=== PATIENT | female | born 1950 | race Caucasian/White ===

== ENCOUNTER → 2017-03-20 | Outpatient (CLI) | payer MEDICARE ==
[~2017-03-20] MED LIST: ASPI-496 PO; DEXA4TAB PO; GARL5000 PO; MAGN400O4 PO; MULT-82 PO; OMEG-69 PO; OMNIPAQUE 350 MG/ML, 100ML BOTTLE ONE; ONDA-39 PO; PLAN450T PO; WARF4TAB PO
== END | disposition home or self-care (01) ==
LOC: CFH 10:02
PROVIDERS: ATTEND Specialist
DX: Z12.31 Encounter for screening mammogram for malignant neoplasm of breast (principal); C54.1 Malignant neoplasm of endometrium; C78.7 Secondary malignant neoplasm of liver and intrahepatic bile duct; N13.30 Unspecified hydronephrosis; R59.0 Localized enlarged lymph nodes; R91.8 Other nonspecific abnormal finding of lung field; R18.8 Other ascites
CPT/HCPCS: 74177; 82565; G0202; Q9967

== ENCOUNTER 2017-03-25 12:30 | Observation (INO) | payer MEDICARE ==
[~2017-03-25] VITALS: Ht 157.5 cm; Wt 62.2 kg
[2017-03-25] VITALS (7 sets, daily range): BP systolic 125–132; BP diastolic 70–80
[~2017-03-25 12:30] MED LIST changes: -OMNIPAQUE 350 MG/ML, 100ML BOTTLE ONE
[2017-03-25] MEDS ORDERED: SODIUM CHLORIDE FLUSH 10ML SYR IVF ONE (14:30)
[2017-03-25 14:38] LABS: ASPARTATE AMINO TRANSFERASE 15 U/L (15-37); BLOOD UREA NITROGEN 7 mg/dL (7-18)
[2017-03-25 14:56] LABS: PATH.CAST-FLAG NOT PRESENT; SPERM-FLAG NOT PRESENT; SRC-FLAG NOT PRESENT; XTAL-FLAG NOT PRESENT; YLC-FLAG NOT PRESENT
[2017-03-25] MEDS ORDERED: OXYcodone/APAP 7.5/325MG TABLET PO ONE (17:00)
[2017-03-25] MEDS ORDERED: LIDOCAINE/PRILOCAINE CRM W/TEG 5GM TP ONE (18:00)
[2017-03-25] MEDS ORDERED: NALOXONE 1 MG/ML, 2ML ONE (18:16)
[2017-03-25] MEDS ORDERED: FENTANYL PF 100 MCG/2ML ONE (18:16)
[2017-03-25] MEDS ORDERED: FLUMAZENIL 0.1 MG/1 ML, 5ML ONE (18:17)
[2017-03-25] MEDS ORDERED: LIDOCAINE 1%, 20ML ONE (18:30)
[2017-03-25] MEDS: ONDANSETRON ODT 4 MG PO SCH (21:00)
[2017-03-26 00:15] VITALS: BP 127/80
[2017-03-26 01:04] VITALS: BP 138/69
[2017-03-26] MEDS: ONDANSETRON ODT 4 MG PO SCH (03:00)
[2017-03-26 06:53] VITALS: BP 145/76
== END 2017-03-26 11:30 | disposition home or self-care (01) ==
LOC: ED 14:34 → EDIP 17:19 → 3NW 18:17
PROVIDERS: ADMIT Specialist; ATTEND Specialist
DX: C54.1 Malignant neoplasm of endometrium (principal); N13.30 Unspecified hydronephrosis; I10 Essential (primary) hypertension; Z79.01 Long term (current) use of anticoagulants; Z85.42 Personal history of malignant neoplasm of other parts of uterus; Z86.711 Personal history of pulmonary embolism; Z86.718 Personal history of other venous thrombosis and embolism; Z87.891 Personal history of nicotine dependence
CPT/HCPCS: 36415; 50693; 50694; 80053; 81001; 83690; 85025; 85610; 85730; 86304; 99285; C1751; C1769; C1894; C2625; G0378; J3010; J3490; J2310

== ENCOUNTER 2017-04-10 07:24 | Day surgery (SDC) | payer MEDICARE ==
[~2017-04-10] VITALS: Ht 157.5 cm; Wt 58.0 kg
[~2017-04-10 07:24] MED LIST changes: +BUPIVACAINE/PF 0.25% ONE; +BUPIVACAINE/PF-EPI 0.5% 1:200K ONE; +EPINEPHRINE 1 MG/ML, 1ML ONE
[2017-04-10] MEDS ORDERED: LACTATED RINGERS 1,000 ML IV SCH (08:18)
[2017-04-10] MEDS ORDERED: FISH OIL PO (08:21)
[2017-04-10] MEDS ORDERED: MULT-208 PO (08:21)
[2017-04-10] MEDS ORDERED: ONDA4TAB7 PO (08:21)
[2017-04-10] MEDS ORDERED: PLEASE ENTER HEIGHT AND WEIGHT MC SCH (08:30)
[2017-04-10] MEDS ORDERED: LIDOCAINE 1%, 2ML SQ PRN (08:30)
[2017-04-10] MEDS ORDERED: LIDOCAINE 1%, 2ML ONE (08:32)
[2017-04-10 08:37] VITALS: BP 108/69
[2017-04-10] MEDS ORDERED: ONDANSETRON 2MG/ML, 2ML ONE (10:35)
[2017-04-10] MEDS ORDERED: PROPOFOL 10 MG/ML, 20ML ONE (10:35)
[2017-04-10] MEDS ORDERED: DEXAMETHASONE 4 MG/ML, 1ML ONE (10:35)
[2017-04-10] MEDS ORDERED: CEFAZOLIN 1,000 MG ONE (10:35)
[2017-04-10] MEDS ORDERED: HEPARIN 1,000 UNITS/ML, 10ML ONE (11:45)
[2017-04-10] MEDS ORDERED: FENTANYL PF 250 MCG/5ML ONE (11:51)
[2017-04-10] MEDS ORDERED: MIDAZOLAM 1 MG/ML, 2ML ONE (11:51)
[2017-04-10] MEDS ORDERED: FENTANYL PF 100 MCG/2ML IV PRN (14:00)
[2017-04-10] MEDS ORDERED: MEPERIDINE/PF 25MG/0.5ML IVPush PRN (14:00)
[2017-04-10] MEDS ORDERED: MIDAZOLAM 1 MG/ML, 2ML IV PRN (14:00)
[2017-04-10] MEDS ORDERED: hydrALAzine 20 MG/ML, 1ML IV PRN (14:00)
[2017-04-10] MEDS ORDERED: LABETALOL 5MG/ML, 20ML IV PRN (14:00)
[2017-04-10] MEDS ORDERED: HYDROmorphone 1 MG/ML, 1ML IV PRN (14:00)
[2017-04-10] MEDS ORDERED: OXYcodone 5 MG/5 ML ORAL.SOL UDC PO PRN (14:00)
[2017-04-10] MEDS ORDERED: ONDANSETRON 2MG/ML, 2ML IVPush PRN (14:00)
[2017-04-10] MEDS ORDERED: PROMETHAZINE 25 MG/ML, 1ML IV PRN (14:00)
[2017-04-10] MEDS ORDERED: EPHEDRINE 50 MG/ML, 1ML IVPush PRN (14:00)
[2017-04-10] MEDS ORDERED: ACETAMINOPHEN 325 MG TABLET PO PRN (14:00)
[2017-04-10] MEDS ORDERED: HYDROcodone/APAP 7.5-325MG/15ML UDC PO PRN (14:00)
[2017-04-10] MEDS ORDERED: FENTANYL PF 100 MCG/2ML ONE (14:25)
[2017-04-10] MEDS ORDERED: OXYcodone 5 MG/5 ML ORAL.SOL UDC ONE (14:25)
== END 2017-04-10 16:10 | disposition home or self-care (01) ==
LOC: OUT 07:24
PROVIDERS: ATTEND Specialist
DX: C54.1 Malignant neoplasm of endometrium (principal); I26.99 Other pulmonary embolism without acute cor pulmonale; Z79.01 Long term (current) use of anticoagulants; Z98.890 Other specified postprocedural states; Z72.89 Other problems related to lifestyle; Z87.891 Personal history of nicotine dependence; G60.9 Hereditary and idiopathic neuropathy, unspecified
CPT/HCPCS: 36415; 36561; 71010; 77001; 85610; 85730; 93005; C1788; J0171; J0690; J1100; J2250; J2405; J2704; J3010; J3490; J7120; J1644

== ENCOUNTER 2017-05-14 11:10 | Inpatient (IN) | payer MEDICARE ==
[~2017-05-14] VITALS: Ht 157.5 cm; Wt 51.4 kg
[~2017-05-14 11:10] MED LIST changes: -BUPIVACAINE/PF 0.25% ONE; -BUPIVACAINE/PF-EPI 0.5% 1:200K ONE; -EPINEPHRINE 1 MG/ML, 1ML ONE; +FISH OIL PO; -MAGN400O4 PO; +MAGN400O7 PO; +MULT-208 PO; +MULT-224 PO; -MULT-82 PO; -ONDA-39 PO; +ONDA4TAB12 PO; +ONDA4TAB7 PO
[2017-05-14] MEDS ORDERED: SODIUM CHLORIDE FLUSH 10ML SYR IVF ONE (12:00)
[2017-05-14 12:14] LABS: HEMATOCRIT 25.8 % (34.6-47.8); HEMOGLOBIN 8.3 g/dL (11.7-16.4); WHITE BLOOD COUNT 7.8 x10^3/uL (3.4-10)
[2017-05-14 12:28] LABS: BLOOD UREA NITROGEN 7 mg/dL (7-18)
[2017-05-14 12:41] LABS: ASPARTATE AMINO TRANSFERASE 23 U/L (15-37)
[2017-05-14 16:14] VITALS: BP 148/78
[2017-05-14] MEDS ORDERED: OXYcodone/APAP 5/325MG TABLET PO PRN (17:00)
[2017-05-14] MEDS ORDERED: OMNIPAQUE 350 MG/ML, 100ML BOTTLE ONE (18:12)
[2017-05-14] MEDS: SODIUM CHLORIDE 0.45% 1,000 ML IV SCH (18:31)
[2017-05-14 19:36] VITALS: BP 118/72
[2017-05-15 02:08] VITALS: BP 128/77
[2017-05-15 07:24] VITALS: BP 97/64
[2017-05-15] MEDS: SODIUM CHLORIDE 0.45% 1,000 ML IV SCH (10:47)
[2017-05-15 14:28] LABS: HEMATOCRIT 23.5 % (34.6-47.8); HEMOGLOBIN 7.6 g/dL (11.7-16.4); WHITE BLOOD COUNT 7.9 x10^3/uL (3.4-10)
[2017-05-15 14:51] VITALS: BP 121/72
[2017-05-15 19:06] VITALS: BP 129/76
[2017-05-16] MEDS: SODIUM CHLORIDE 0.45% 1,000 ML IV SCH (00:43)
[2017-05-16 02:27] VITALS: BP 144/78
[2017-05-16 07:50] VITALS: BP 116/67
[2017-05-16] MEDS ORDERED: OXYC-302 PO (11:18)
== END 2017-05-16 13:50 | disposition home or self-care (01) | DRG 754 ==
LOC: ED 11:23 → EDIP 14:51 → 3NW 15:58
PROVIDERS: ADMIT Specialist; ATTEND Specialist
DX: C56.9 Malignant neoplasm of unspecified ovary (principal); E43 Unspecified severe protein-calorie malnutrition; C79.82 Secondary malignant neoplasm of genital organs; K92.2 Gastrointestinal hemorrhage, unspecified; N13.30 Unspecified hydronephrosis; Z51.5 Encounter for palliative care; Z66 Do not resuscitate; Z86.711 Personal history of pulmonary embolism; Z86.718 Personal history of other venous thrombosis and embolism; Z90.710 Acquired absence of both cervix and uterus; Z87.891 Personal history of nicotine dependence
CPT/HCPCS: 36415; 74177; 80053; 81001; 85025; 85610; 87086; 99285; Q9967

== ENCOUNTER → 2017-05-18 | Outpatient (CLI) | payer MEDICARE ==
[~2017-05-18] MED LIST changes: +OXYC-302 PO
== END | disposition home or self-care (01) ==
LOC: ROC 13:33
PROVIDERS: ATTEND Radiology Radiation Oncology
DX: C54.1 Malignant neoplasm of endometrium (principal)
CPT/HCPCS: 99214; G0463